=== PATIENT | male | born 1995 | race American Indian/Alaskan Native ===

== ENCOUNTER 2017-07-03 23:47 | Emergency (ER) | payer MEDICAID ==
[2017-07-04 00:02] VITALS: BP 149/87; PULSE 61; RESP 20; TEMP 98.5; O2SAT 98
--- NOTE | 2017-07-04 00:21 | C.PDOC ---
History Of Present Illness 22 years old male presents to ED with complaints of painful rash to scrotal area that began yesterday. Denies fever, drainage, or travel. Patient states he has had Hx of similar symptoms in the past. Time Seen by Provider: 07/03/17 23:55 Chief Complaint (Nursing): Male Genitourinary History Per: Patient History/Exam Limitations: no limitations Onset/Duration Of Symptoms: Days (1) Current Symptoms Are (Timing): Still Present Quality Of Discomfort: "Pain" Associated Symptoms: denies: Fever, Chills, Nausea, Vomiting, Diarrhea Alleviating Factors: None Recent travel outside of the [place]: No Past Medical History Reviewed: Historical Data, Nursing Documentation, Vital Signs Vital Signs: Last Vital Signs Temp 98.5 F 07/03/17 23:54 Pulse 61 07/03/17 23:54 Resp 20 07/03/17 23:54 BP 149/87 07/03/17 23:54 Pulse Ox 98 07/04/17 03:51 - Medical History PMH: No Chronic Diseases Surgical History: No Surg Hx Family History: States: No Known Family Hx - Social History Hx Alcohol Use: No Hx Substance Use: Yes (Weeds) - Immunization History Hx Tetanus Toxoid Vaccination: No Hx Influenza Vaccination: No Hx Pneumococcal Vaccination: No Review Of Systems Constitutional: Negative for: Fever, Chills Gastrointestinal: Negative for: Nausea, Vomiting, Diarrhea Skin: Positive for: Rash (scrotal area) Neurological: Negative for: Weakness, Numbness Physical Exam - Physical Exam Appears: Non-toxic, No Acute Distress Skin: Warm, Dry Head: Atraumatic, Normacephalic Eye(s): bilateral: Normal Inspection Oral Mucosa: Moist Neck: Normal ROM, Supple Chest: Symmetrical, No Tenderness Cardiovascular: Rhythm Regular, No Friction Rub, No Murmur Respiratory: Normal Breath Sounds, No Decreased Breath Sounds, No Rales, No Rhonchi, No Wheezing Gastrointestinal/Abdominal: Soft, No Tenderness, No Distention Male Genital: No Testicular Tenderness, No Testicular Swelling, No Inguinal Tenderness, No Inguinal Swelling, Other (pustular/vesicular like lesions to left scrotal area; rash spread to base of penis ) Extremity: Normal ROM Neurological/Psych: Oriented x3, Normal Speech, Normal Cognition Gait: Steady ED Course And Treatment O2 Sat by Pulse Oximetry: 98 (RA) Pulse Ox Interpretation: Normal Medical Decision Making Medical Decision Making: The physical exam is indicative of possible genital herpes infection. Administered Acyclovir. Disposition - Disposition Referrals: Gillian Prado MD [Medical Doctor] - Disposition: HOME/ ROUTINE Disposition Time: 00:37 Condition: FAIR Additional Instructions: Follow up with the medical doctor within 1-2 days without fail. Return if worsened. Prescriptions: Acyclovir [Zovirax] 400 mg PO TID #21 tab Instructions: Genital Herpes Forms: [employer] (Slovak) - Clinical Impression Clinical Impression: Genital herpes - PA / NUT CULLER / Resident Statement MD/DO has reviewed & agrees with the documentation as recorded. - Scribe Statement The provider has reviewed the documentation as recorded by the Mecheibdeondre Baltazar All medical record entries made by the Mecheibdeondre were at my direction and personally dictated by me. I have reviewed the chart and agree that the record accurately reflects my personal performance of the history, physical exam, medical decision making, and the department course for this patient. I have also personally directed, reviewed, and agree with the discharge instructions and disposition.
== END 2017-07-04 00:45 | disposition home or self-care (01) ==
LOC: C.ER 23:47
DX: A60.00 Herpesviral infection of urogenital system, unspecified (principal)

== ENCOUNTER 2017-07-07 10:43 | Emergency (ER) | payer MEDICAID ==
[2017-07-07 10:47] VITALS: BMI 23.6
[2017-07-07 10:49] VITALS: BP 133/76; PULSE 96; RESP 18; TEMP 98; O2SAT 98
--- NOTE | 2017-07-07 13:30 | C.PDOC ---
History Of Present Illness 22 y/o male presents to ED with complaints of abscess to scrotal area developed 3 days ago. 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 Chief Complaint (Nursing): Male Genitourinary History Per: Patient History/Exam Limitations: no limitations Onset/Duration Of Symptoms: Days Current Symptoms Are (Timing): Still Present Past Medical History Reviewed: Historical Data, Nursing Documentation, Vital Signs Vital Signs: Last Vital Signs Temp 98.0 F 07/07/17 10:46 Pulse 96 H 07/07/17 10:46 Resp 18 07/07/17 10:46 BP 133/76 07/07/17 10:46 Pulse Ox 98 07/07/17 13:32 - Medical History PMH: No Chronic Diseases Surgical History: No Surg Hx Family History: States: No Known Family Hx - Social History Hx Alcohol Use: No Hx Substance Use: Yes - Immunization History Hx Tetanus Toxoid Vaccination: No Hx Influenza Vaccination: No Hx Pneumococcal Vaccination: No Review Of Systems Constitutional: Negative for: Fever, Chills Genitourinary: Positive for: Other (Scrotal abscess). Negative for: Dysuria, Penile Pain Musculoskeletal: Negative for: Back Pain Skin: Negative for: Rash Physical Exam - Physical Exam Appears: Non-toxic, No Acute Distress Skin: Warm, Dry, No Rash Head: Atraumatic, Normacephalic Eye(s): bilateral: Normal Inspection Oral Mucosa: Moist Gastrointestinal/Abdominal: Soft, No Tenderness, No Guarding, No Rebound Back: No CVA Tenderness Male Genital: No Testicular Tenderness, No Testicular Swelling, No Scrotal Swelling, Other (indurated abscess at base of scrotum. No drainage) Extremity: Normal ROM, Capillary Refill (<2 seconds) Neurological/Psych: Oriented x3, Normal Speech ED Course And Treatment O2 Sat by Pulse Oximetry: 98 (RA) Pulse Ox Interpretation: Normal Disposition - Disposition Referrals: [facility] [Outside] [facility] [Outside] Disposition: HOME/ ROUTINE Disposition Time: 10:50 Condition: GOOD Additional Instructions: Thank you for letting us take care of you today. The emergency medical care you received today was directed at your acute symptoms. If you were prescribed any medication, please fill it and take as directed. It may take several days for your symptoms to resolve. Return to the Emergency Department if your symptoms worsen, do not improve, or if you have any other problems. Please contact your doctor or call one of the physicians/clinics you have been referred to that are listed on the Patient Visit Information form that is included in your discharge packet. Bring any paperwork you were given at discharge with you along with any medications you are taking to your follow up visit. Our treatment cannot replace ongoing medical care by a primary care provider (PCP) outside of the emergency department. Thank you for allowing the [facility] team to be part of your care today. Follow up with the clinic in 2-3 days as scheduled for re-evaluation and further management. Prescriptions: Cephalexin [cephalexin] 500 mg PO Q6 #28 cap Ibuprofen [Motrin] 600 mg PO Q6 PRN #20 tab PRN Reason: Pain, Moderate (4-7) Instructions: Boil (DC) Forms: [employer] (Malian) - Clinical Impression Clinical Impression: Abscess - Scribe Statement The provider has reviewed the documentation as recorded by the Mecheibdeondre Thomson All medical record entries made by the Mecheibdeondre were at my direction and personally dictated by me. I have reviewed the chart and agree that the record accurately reflects my personal performance of the history, physical exam, medical decision making, and the department course for this patient. I have also personally directed, reviewed, and agree with the discharge instructions and disposition.
== END 2017-07-07 12:00 | disposition home or self-care (01) ==
LOC: C.ER 10:43
DX: N49.2 Inflammatory disorders of scrotum (principal)